=== PATIENT | male | born 1990 | race Caucasian/White ===

== ENCOUNTER 2016-05-30 10:17 | Emergency (ER) | payer OTHER ==
[~2016-05-30] VITALS: Ht 160 cm; Wt 65.0 kg
[2016-05-30 10:23] VITALS: Ht 160 cm; Wt 65.0 kg
[2016-05-30] MEDS ORDERED: ONDANSETRON 4 MG INJ IV STA (11:09)
[2016-05-30] MEDS ORDERED: SOD CHLORIDE 0.9% 1,000 ML IV STA (11:09)
[2016-05-30 13:00] LABS: ADD SCAN DIFF NO
[2016-05-30 13:01] LABS: BASOPHILS % 0.3 % (0.0-2.0); HEMATOCRIT 42.7 % (42.0-52.0); HEMOGLOBIN 14.4 g/dl (14.0-18.0); LYMPHOCYTES # 1.8 10^3/ul (0.8-2.9); LYMPHOCYTES % 17.9 % (15.0-51.0); MEAN CORPUSCULAR HEMOGLOBIN 28.7 pg (29.0-33.0); MEAN CORPUSCULAR HGB CONC 33.7 g/dl (32.0-37.0); MEAN CORPUSCULAR VOLUME 85.1 fl (82.0-101.0); MEAN PLATELET VOLUME 10.6 fl (7.4-10.4); MONOCYTE # 1.4 10^3/ul (0.3-0.9); MONOCYTES % 14.2 % (0.0-11.0); NEUTROPHIL # 6.6 10^3/ul (1.6-7.5); NEUTROPHILS % 67.3 % (39.0-77.0); PLATELET COUNT 305 10^3/UL (140-415); RED BLOOD COUNT 5.02 10^6/ul (4.70-6.10); RED CELL DISTRIBUTION WIDTH 14.1 % (11.5-14.5); WHITE BLOOD COUNT 9.8 10^3/ul (4.8-10.8)
[2016-05-30 13:30] LABS: PARTIAL THROMBOPLASTIN TIME 28.6 Sec (25.0-35.0)
[2016-05-30 13:37] LABS: POTASSIUM 3.2 mmol/L (3.5-5.1)
--- NOTE | 2016-05-30 13:38 | ERD ---
ER Documentation Chief Complaint Date/Time DATE: 05/30/16 TIME: 13:33 Chief Complaint vomited blood today twice. in custody with police HPI 25-year-old male who presents in police custody. The patient has recently been arrested. He states that his last heroin use was 5 days ago. He states that he is withdrawing. He states mild body pains, multiple episodes of nonbloody nonbilious emesis followed by occasional blood-streaked emesis. The patient was sent to the emergency room for further evaluation. He denies any melena, no history of peptic ulcer disease or significant alcohol abuse. He denies any abdominal pain. ROS All systems reviewed and are negative except as per history of present illness. Medications Home Meds No Active Prescriptions or Reported Meds Allergies Allergies: Coded Allergies: No Known Allergy (Unverified , 05/30/16) PMhx/Soc Medical and Surgical Hx: pt denies Medical Hx, pt denies Surgical Hx Hx Alcohol Use: No Hx Substance Use: No Hx Tobacco Use: No Smoking Status: Never smoker FmHx Family History: No diabetes Physical Exam Vitals Vital Signs Date Time Temp Pulse Resp B/P Pulse Ox O2 Delivery O2 Flow Rate FiO2 05/30/16 13:45 98.2 72 18 119/74 98 Room Air 05/30/16 10:23 98.7 78 18 122/76 98 Physical Exam General: Slightly disheveled but no acute distress Head: Normocephalic, atraumatic. Eyes: Pupils equally reactive, EOM intact ENT: Moist mucous membranes Neck: Supple, no lymphadenopathy Respiratory: Lungs clear bilaterally, no distress Cardiovascular: RRR, no murmurs, rubs, or gallops Abdominal: Soft, non-tender, non-distended, no peritoneal signs : Deferred MSK: No edema, no unilateral swelling, 5/5 strength Neurologic: Alert and oriented, moving all extremities, normal speech, no focal weakness, no cerebellar signs Skin: No rash Psych: Normal mood Result Diagram: 05/30/16 1200 05/30/16 1200 Results 24 hrs Laboratory Tests Test 05/30/16 12:00 Activated Partial Thromboplast Time 28.6Sec Anion Gap 18 Basophils # 0.010^3/ul Basophils % 0.3% Blood Urea Nitrogen 16mg/dl Calcium Level 9.0mg/dl Carbon Dioxide Level 27mmol/L Chloride Level 98mmol/L Creatinine 0.67mg/dl Eosinophils # 0.010^3/ul Eosinophils % 0.0% Glucose Level 108mg/dl Hematocrit 42.7% Hemoglobin 14.4g/dl INR International Normalized Ratio 1.00 Lymphocytes # 1.810^3/ul Lymphocytes % 17.9% Mean Corpuscular Hemoglobin 28.7pg Mean Corpuscular Hemoglobin Concent 33.7g/dl Mean Corpuscular Volume 85.1fl Mean Platelet Volume 10.6fl Monocytes # 1.410^3/ul Monocytes % 14.2% Neutrophils # 6.610^3/ul Neutrophils % 67.3% Nucleated Red Blood Cells # 0.010^3/ul Nucleated Red Blood Cells % 0.0/100WBC Platelet Count 10588^3/UL Potassium Level 3.2mmol/L Prothrombin Time 13.3Sec Prothrombin Time Ratio 1.0 Red Blood Count 5.0210^6/ul Red Cell Distribution Width 14.1% Sodium Level 140mmol/L White Blood Count 9.810^3/ul Current Medications Medications (Trade) Dose Ordered Sig/Lidia Route PRN Reason Start Time Stop Time Status Last Admin Dose Admin Sodium Chloride (NS) 1,000 ml @ 1,000 mls/hr Q1H STAT IV 05/30/16 11:09 05/30/16 12:08 DC 05/30/16 11:48 Ondansetron HCl (Zofran Inj) 4 mg ONCE STAT IV 05/30/16 11:09 05/30/16 11:16 DC 05/30/16 11:49 Clonidine (Catapres) 0.1 mg ONCE ONCE PO 05/30/16 11:30 05/30/16 11:31 DC 05/30/16 11:49 Procedures/MDM LAB INTERPRETATION: Normal hemoglobin of 14 MEDICAL DECISION MAKING: The patient presents with multiple episodes of vomiting status post mild withdrawal syndrome of heroin. The patient is otherwise well-appearing and well -hydrated. He has no risk factors for aggressive upper GI bleed. The patient' s description of hematemesis is likely secondary to Maria G-Cuellar tear given multiple episode of vomiting and retching. The patient will benefit from laboratory testing to rule out significant anemia, coagulopathy. However, I do not believe that inpatient hospitalization or endoscopy is warranted given very low clinical concern for upper GI hemorrhage secondary to variceal bleed, peptic ulcer disease or AV malformation. ER COURSE: The patient's laboratory testing shows a normal hemoglobin. BUN to creatinine ratio does not suggest significant upper GI bleed. The patient has not vomited with greater than 2 hour observation here in the emergency room. I believe the patient can be safely discharged back into police custody. The patient has been given clonidine IV fluids and Zofran. I kept the patient and/or family informed of laboratory and diagnostic imaging results throughout the emergency room course. DISPOSITION PLAN: We discussed follow up with the patient's primary care doctor within 24 to 48 hours as needed. We also discussed return to the emergency room for worsening symptoms or worsening condition. Outpatient referral: [None required] Departure Diagnosis: Primary Impression: Maria G-Cuellar tear Additional Impression: Heroin withdrawal Condition: Stable JEROME REYES MD May 30, 2016 13:38
[2016-05-30 13:39] LABS: CREATININE 0.67 mg/dl (0.61-1.24)
[2016-05-30 13:45] VITALS: BP 119/74; PULSE 72; RESP 18; TEMP 98.2
[2016-05-30 13:53] LABS: PROTIME 13.3 Sec (12.2-14.2)
== END 2016-05-30 14:32 | disposition home or self-care (01) ==
LOC: E/R 10:17
DX: K22.6 Gastro-esophageal laceration-hemorrhage syndrome (principal); F11.23 Opioid dependence with withdrawal
CPT/HCPCS: 36415; 80048; 85025; 85610; 85730; 96374; 99284; J2405; J7030